=== PATIENT | male | born 1965 | race African-American/Black ===

== ENCOUNTER 2018-07-23 02:24 | Emergency (ER) | payer BC, SELFPAY ==
[2018-07-23] MEDS ORDERED: Oxymetazoline HCl 0.05% ( 15 ML ) ONE (02:51)
== END 2018-07-23 04:13 | disposition home or self-care (01) ==
LOC: ERS 02:24
DX: R04.0 Epistaxis (principal); I10 Essential (primary) hypertension; F17.220 Nicotine dependence, chewing tobacco, uncomplicated; W22.8XXA Striking against or struck by other objects, initial encounter
CPT/HCPCS: 99283

== ENCOUNTER 2018-07-25 05:05 | Emergency (ER) | payer SELFPAY ==
[2018-07-25] MEDS ORDERED: Oxymetazoline HCl 0.05% ( 15 ML ) ONE (06:08)
[2018-07-25 06:20] LABS: #Eosinphils 0.1 thou/uL (0.0-0.7); #Lymphocytes 1.6 thou/uL (1.20-3.40); #Monocytes 0.6 thou/uL (0.11-0.59); #Neutrophils 6.2 thou/uL (1.40-6.50); %Basophils 0.4 % (0.0-1.0); %Eosinophils 1.5 % (0.0-10.0); %Lymphocytes 18.4 % (21.0-51.0); %Monocytes 6.8 % (0.0-10.0); %Neutrophils 72.9 % (42.0-75.0); Hemoglobin 14.3 g/dL (14.0-18.0); Mean Corpuscular HGB CONC 31.3 g/dL (32.0-36.0); Mean Corpuscular Hemoglobin 25.2 pg (27.0-31.0); Mean Corpuscular Volume 80.7 fL (78.0-98.0); Mean Platelet Volume 7.6 fL (7.4-10.4); Platelet Count 237 thou/uL (130-400); RBC Distribution Width 13.8 % (11.5-14.5); Red Blood Cell (RBC) Count 5.68 mill/uL (4.70-6.10); White Blood Cell (WBC) Count 8.5 thou/uL (4.8-10.8)
[2018-07-25 06:26] LABS: Prothrombin Time 13.5 SEC (12.0-14.7)
[2018-07-25 06:27] LABS: PTT 31.2 SEC (22.9-36.1)
== END 2018-07-25 07:05 | disposition home or self-care (01) ==
LOC: ERS 05:05
DX: R04.0 Epistaxis (principal); I10 Essential (primary) hypertension; Z71.6 Tobacco abuse counseling; F17.220 Nicotine dependence, chewing tobacco, uncomplicated
CPT/HCPCS: 30903; 36415; 85025; 85610; 85730; 99406

== ENCOUNTER 2020-02-11 19:54 | Emergency (ER) | payer SELFPAY | END 2020-02-11 21:25 | disposition home or self-care (01) | LOC: ERS 19:54 | DX: R21 Rash and other nonspecific skin eruption (principal); L12.0 Bullous pemphigoid; I10 Essential (primary) hypertension; F17.220 Nicotine dependence, chewing tobacco, uncomplicated; Z79.899 Other long term (current) drug therapy | CPT/HCPCS: 99282 ==